=== PATIENT | male | born 1980 | race African-American/Black ===

== ENCOUNTER 2017-03-20 10:13 | Emergency (ER) | payer OTHER ==
[~2017-03-20] VITALS: Ht 188 cm; Wt 111.8 kg
[2017-03-20 11:37] VITALS: BP 131/79
== END 2017-03-20 11:37 | disposition home or self-care (01) ==
LOC: ED 10:13
DX: S29.012A Strain of muscle and tendon of back wall of thorax, initial encounter (principal); S80.02XA Contusion of left knee, initial encounter; R03.0 Elevated blood-pressure reading, without diagnosis of hypertension; Z79.899 Other long term (current) drug therapy; Z88.8 Allergy status to other drugs, medicaments and biological substances; V89.2XXA Person injured in unspecified motor-vehicle accident, traffic, initial encounter; W22.10XA Striking against or struck by unspecified automobile airbag, initial encounter; Y93.89 Activity, other specified; Y92.89 Other specified places as the place of occurrence of the external cause; Y99.8 Other external cause status